=== PATIENT | female | born 1960 | race American Indian/Alaskan Native ===

== ENCOUNTER 2018-11-20 15:29 | Emergency (ER) | payer BC ==
[2018-11-20 16:18] VITALS: BP 113/80
--- NOTE | 2018-11-20 16:19 | Emergency Department Report ---
Upper Extremity - [facility] Chief Complaint: Extremity Injury, Upper Stated Complaint: (L) HAND SWOLLEN/PAIN Time Seen by Provider: 11/20/18 16:14 Upper Extremity: Left Wrist Occurred When: 1 Day Mechanism: Unsure Severity: severe Symptoms: Yes Pain with Movement, No Deformity, No Limited Range of Movement, No Numbness, No Weakness, No Swelling, No Bruising/Ecchymosis, No Laceration or Abrasion Other History: 58 y/o female comes in for left wrist pain. Denies any injuries. 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 Took Ibuprofen but only 2 tabs dose of 4oomg. ED Review of Systems ROS: Stated complaint: (L) HAND SWOLLEN/PAIN Other details as noted in HPI ED Past Medical Hx - Past Medical History Previous Medical History?: Yes Hx Hypertension: Yes Additional medical history: Reflux - Surgical History Past Surgical History?: Yes Additional Surgical History: Back surgery, hand surgery - Social History Smoking Status: Never Smoker Substance Use Type: None - Medications Home Medications: Home Medications Medication Instructions Recorded Confirmed Last Taken Type DOXYCYCLINE Hyclate [Vibramycin 100 mg PO BID #14 capsule 01/01/13 Unknown Rx CAP] Dexlansoprazole [Dexilant] 60 mg PO QDAY 01/01/13 01/01/13 12/30/12 20:00 History Estradiol/Levonorgestrel [Climara 0.05 mg TRANSDERMA 2XW 01/01/13 01/01/13 Unknown History Pro Patch] Hydrocodone Bit/Acetaminophen 1 tab PO Q6H PRN #10 tablet 01/01/13 Unknown Rx [Lortab 5-500 Tablet] Lisinopril [Zestril] 5 mg PO QDAY 01/01/13 01/01/13 01/01/13 09:00 History Simvastatin [Zocor] 40 mg PO QHS 01/01/13 01/01/13 Unknown History amLODIPine [Norvasc] 5 mg PO DAILY 01/01/13 01/01/13 01/01/13 09:00 History diazePAM TAB [Valium] 5 mg PO DAILY 01/01/13 01/01/13 12/31/12 16:00 History hydroCHLOROthiazide [Hctz] 25 mg PO QDAY 01/01/13 01/01/13 01/01/13 09:00 History traMADol [Ultram 50 MG tab] 50 mg PO PRN 01/01/13 01/01/13 Unknown History HYDROcodone/APAP 5-325 [[place] 1 each PO Q6HR PRN #10 tablet 09/03/13 Unknown Rx 5-325 mg TAB] Ibuprofen [Motrin] 800 mg PO TID PRN #20 tablet 09/03/13 Unknown Rx levoFLOXacin [Levaquin] 500 mg PO QDAY #10 tablet 01/20/14 Unknown Rx Ibuprofen [Motrin 600 MG tab] 600 mg PO Q8H PRN #30 tablet 11/20/18 Unknown Rx Upper Extremity Exam - Exam General: Vital signs noted. No distress. Alert and acting appropriately. ED Medical Decision Making - Medical Decision Making 58 y/o female comes in for left wrist pain. Denies any injuries. 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 Took Ibuprofen but only 2 tabs dose of 4oomg. Rx for Ibuprofen 600mg and wrist splint. Critical care attestation.: If time is entered above; I have spent that time in minutes in the direct care of this critically ill patient, excluding procedure time. ED Disposition Clinical Impression: Strain of wrist, left Qualifiers: Encounter type: initial encounter Qualified Code(s): S66.912A - Strain of unspecified muscle, fascia and tendon at wrist and hand level, left hand, initial encounter Disposition: TO HOME OR SELFCARE Is pt being admited?: No Does the pt Need Aspirin: No Condition: Stable Instructions: Muscle Strain (ED) Additional Instructions: Take Ibuprofen as prescribed follow up with an orthopedic provider. Prescriptions: Ibuprofen [Motrin 600 MG tab] 600 mg PO Q8H PRN #30 tablet PRN Reason: Pain Referrals: MEAGAN MARIE MD [Staff Physician] - 3-5 Days Forms: Work/School Release Form(ED)
== END 2018-11-20 16:41 | disposition home or self-care (01) ==
LOC: ED 15:29
DX: S66.912A Strain of unspecified muscle, fascia and tendon at wrist and hand level, left hand, initial encounter (principal); I10 Essential (primary) hypertension; K21.9 Gastro-esophageal reflux disease without esophagitis; Z88.2 Allergy status to sulfonamides; Z88.0 Allergy status to penicillin; Z88.5 Allergy status to narcotic agent; Z98.890 Other specified postprocedural states; Z79.899 Other long term (current) drug therapy; Z79.1 Long term (current) use of non-steroidal anti-inflammatories (NSAID); W22.8XXA Striking against or struck by other objects, initial encounter; Y93.G3 Activity, cooking and baking; Y92.218 Other school as the place of occurrence of the external cause; Y99.8 Other external cause status